=== PATIENT | male | born 1965 | race Caucasian/White ===

== ENCOUNTER 2017-09-05 11:41 | Emergency (ER) | payer BC, OTHER ==
[~2017-09-05] VITALS: Ht 170.2 cm; Wt 74.8 kg
[2017-09-05 11:42] VITALS: BP 184/105
[2017-09-05] MEDS ORDERED: NORCO 5-325 TA1 EACH PO (12:28)
== END 2017-09-05 13:30 | disposition home or self-care (01) ==
LOC: ER 11:41
DX: M25.462 Effusion, left knee (principal); I10 Essential (primary) hypertension; F17.210 Nicotine dependence, cigarettes, uncomplicated

== ENCOUNTER 2018-10-31 08:18 | Emergency (ER) | payer OTHER ==
[~2018-10-31] VITALS: Ht 167.6 cm; Wt 70.8 kg
[~2018-10-31 08:18] MED LIST: NORCO 5-325 TA1 EACH PO
[2018-10-31 08:19] VITALS: BP 155/107
[2018-10-31] MEDS ORDERED: NORFLEX100 MG PO (08:53)
[2018-10-31] MEDS ORDERED: CLOTRIMAZOLE 1%15 G1 TOP (09:02)
== END 2018-10-31 09:06 | disposition home or self-care (01) ==
LOC: ER 08:18
DX: S39.012A Strain of muscle, fascia and tendon of lower back, initial encounter (principal); F17.210 Nicotine dependence, cigarettes, uncomplicated; I10 Essential (primary) hypertension; X50.1XXA Overexertion from prolonged static or awkward postures, initial encounter; Y92.89 Other specified places as the place of occurrence of the external cause; Y93.89 Activity, other specified; Y99.8 Other external cause status

== ENCOUNTER 2018-12-26 09:53 | Emergency (ER) | payer OTHER ==
[~2018-12-26] VITALS: Ht 170.2 cm; Wt 72.6 kg
[~2018-12-26 09:53] MED LIST changes: +CLOTRIMAZOLE 1%15 G1 TOP; +NORFLEX100 MG PO
[2018-12-26 12:50] VITALS: BP 130/76
== END 2018-12-26 12:50 | disposition home or self-care (01) ==
LOC: ER 09:53
DX: S01.511A Laceration without foreign body of lip, initial encounter (principal); S60.511A Abrasion of right hand, initial encounter; F10.129 Alcohol abuse with intoxication, unspecified; I10 Essential (primary) hypertension; F17.210 Nicotine dependence, cigarettes, uncomplicated; W01.0XXA Fall on same level from slipping, tripping and stumbling without subsequent striking against object, initial encounter; Y93.89 Activity, other specified; Y92.89 Other specified places as the place of occurrence of the external cause; Y99.8 Other external cause status; Y90.9 Presence of alcohol in blood, level not specified